=== PATIENT | male | born 1995 | race Caucasian/White ===

== ENCOUNTER → 2021-09-22 | Outpatient (CLI) | payer SELFPAY ==
[2021-09-22 13:21] LABS: SEMEN VOLUME 3.3 ML (1.5-5.0)
== END ==
LOC: LAB 11:44
PROVIDERS: ATTEND Obstetrics & Gynecology
DX: Z31.41 Encounter for fertility testing (principal)
CPT/HCPCS: 89320

== ENCOUNTER → 2022-04-20 | Outpatient (CLI) | payer SELFPAY ==
[2022-04-20 11:47] LABS: SEMEN VOLUME 2.5 ML (1.5-5.0)
== END ==
LOC: LAB 10:33
DX: Z31.41 Encounter for fertility testing (principal)
CPT/HCPCS: 89320